=== PATIENT | male | born 1945 | race Caucasian/White ===

== ENCOUNTER → 2017-04-19 | Outpatient (CLI) | payer MEDICARE ==
--- NOTE | 2017-04-20 09:19 | CONS ---
CONSULTATION Date of Consultation: DATE OF CONSULTATION: 04/01/17 72-year-old gentleman has been evaluated in [facility] for obstructive sleep apnea. HISTORY OF PRESENT ILLNESS: I diagnosed patient with obstructive sleep apnea in 2007 and at that time, she was started on treatment with CPAP at a pressure 8 cm of water. The patient continued to use his CPAP equipment until present time and he sleeps better with CPAP then without CPAP before but he increase his weight on around 30 pounds since his previous titration and recently again developed snoring, episodes of stopped breathing during his sleep and awakening with choking, gasping for air, and grinding teeth. SLEEP SCHEDULE: Normal sleep schedule: 8:30 p.m. until 6:00 a.m., basically 7 days a week. FALLING ASLEEP: No problems with falling asleep. He has TV set in bedroom. DURING SLEEP: He may wake up from sleep several times with one episode of nocturia. Sometimes he has some pain in his right knee, which may be also the factor for his awakening from sleep. DURING THE DAY/WAKE STATE: He wakes up tired recently. [place] sleepiness scale increased to 13. PAST MEDICAL HISTORY: Positive for hypertension, hyperlipidemia. PAST SURGICAL HISTORY: Two surgery for nasal septum deviation and surgery for sinusitis. CURRENT MEDICATIONS: 1. Baby aspirin. 2. Losartan. 3. Microzide. 4. Denise. 5. Pravastatin. 6. Minocycline. 7. Ibuprofen. 8. Fluticasone nasal spray. SOCIAL HISTORY: Positive for smoking in the past. Quit in 2006. Alcohol consumption none. FAMILY HISTORY: Hypertension, heart problems, hyperlipidemia, stroke, arthritis, and cancer. PHYSICAL EXAM: 72-year-old, gentleman in no distress. BP 169/81. HR 80 and RR 16 and height 5 feet 9.5 Inches, weight 255, BMI 37.1, temperature 97.8. Oxygen saturation on room air 95%. Oropharynx extremely low position of soft palate. Nose: Patient able to breath through both sides of the nose. NECK: Supple. No JVD. Thyroid is not palpable. LUNGS: Clear to auscultation and percussion. Good air exchange. No wheezing or rhonchi. HEART: S1, S2 regular. No murmurs, gallops or rubs. ABDOMEN: Obese. Soft, nontender. Bowel sounds are preset. No organomegaly appreciated. EXTREMITIES: Extremities 1+ bilateral ankle edema. SOCIAL MEDIA MANAGER: Awake, alert and oriented times three. Cranial nerves 2 to 7 intact. There is no fasciculation or atrophy noted. No focal deficits observed. IMPRESSION: 1. Obstructive sleep apnea-hypopnea syndrome diagnosed in 2007. Patient continue to use his CPAP equipment every night but recently again developed snoring, sleepiness, and awakenings from sleep. 2. Obesity, patient increased weight of 30 pounds since previous titration 9 years ago. 3. Hypertension. 4. Hyperlipidemia. 5. Status post surgery for nasal septal deviation. 6. Status post surgical treatment of sinusitis. 7. Allergy. 8. Hyperlipidemia. 9. Swelling of the legs. 10.Status post rotator cuff surgery. 11.Status post surgical treatment of plantar fasciitis. PLAN: 1. CPAP titration for evaluation of effective CPAP pressure at the present time. 2. Losing weight. 3. Sleep hygiene with regular time in bed for at least 8 hours. 4. No driving if feels any sleepiness. 5. Prescription for all necessary CPAP supplies. Thank you for referring this patient for consultation. Sincerely, Mando Carrillo MD, PhD, FAASM Diplomat of [place] [employer]. Sleep Medicine Board by [employer] Quality Assurance Supervisor of [facility] [place] MMODL / IJN: [id number] /
== END | disposition home or self-care (01) ==
LOC: SLEEP 14:04
PROVIDERS: ATTEND Internal Medicine
DX: G47.33 Obstructive sleep apnea (adult) (pediatric) (principal); E66.9 Obesity, unspecified; I10 Essential (primary) hypertension; E78.5 Hyperlipidemia, unspecified; T78.40XA Allergy, unspecified, initial encounter; M79.89 Other specified soft tissue disorders; Z79.82 Long term (current) use of aspirin; Z79.899 Other long term (current) drug therapy; Z98.890 Other specified postprocedural states
CPT/HCPCS: 99211

== ENCOUNTER → 2017-06-21 | Outpatient (CLI) | payer MEDICARE ==
--- NOTE | 2017-06-21 12:47 | PN ---
PROGRESS NOTE DATE OF SERVICE: 06/21/2017. 72-year-old gentleman who has been followed in [facility] for treatment of obstructive sleep apnea-hypopnea syndrome. Patient continued to use his CPAP equipment every night for the whole night, but still has some episodes of sleepiness during the day. He had recent titration in April of 2017, and his machine actually was not changed after titration. I explain the patient results of titration. Titration showed that effective CPAP pressure was 13 cm of water. With a lower pressure, the patient continued to have some abnormalities of respirations. I checked his CPAP unit. Usage is 28/30 nights for more than 4 hours, average 6.6 hours. Pretty high leak 59 L/minute. Apnea-hypopnea index reading only 1.6. [place] Sleepiness Scale today is 12. MEDICATIONS: Aspirin, losartan, Microzide, Denise, pravastatin, minocycline, ibuprofen, fluticasone nasal spray. PHYSICAL EXAM: GENERAL: A 72-year-old gentleman without distress. VITAL SIGNS: BP 132/69, HR 58, RR 16, weight 262, temp 96.9, oxygen saturation at room air 95%. HEENT: PERRLA, EOMI, evaluation of oropharynx showed extremely low position of soft palate. NECK : Supple, no JVD. Thyroid is not palpable. HEART: S1, S2 regular with some extrasystoles. LUNGS: Clear to percussion and to auscultation. Good air exchange. No wheezing or rhonchi. ABDOMEN: Obese. Soft and nontender. Bowel sounds are present. No organomegaly appreciated. EXTREMITIES : No clubbing or cyanosis. REGULATORY AUDITOR: Awake, alert, and oriented X3. Cranial nerves 2 to 7 intact. There is no fasciculation or atrophy. noted. No focal deficits observed. IMPRESSION: 1. Obstructive sleep apnea-hypopnea syndrome. The patient continued to use his CPAP equipment every night without significant problems benefitting from treatment. 2. CPAP pressure in the machine 10. Results of sleep study indicated that 13 is the best pressure. 3. Obesity. 4. Hypertension. 5. Hyperlipidemia. 6. Status post surgery for nasal septum deviation. 7. Status post surgical treatment of sinusitis. 8. Allergy. 9. Status post rotator cuff surgery. 10.Status post surgical treatment of plantar fasciitis. PLAN: 1. I adjusted the CPAP pressure in the machine up to 13 cm of water. 2. I changed ramp, increased it to 20 minutes and starting pressure increased to 6 cm of water. 3. Continue to use CPAP equipment every night for losing weight. 4. Losing weight. 5. Sleep hygiene with regular time in bed for at least 8 hours. 6. Prescription for all necessary CPAP supplies. 7. Followup visit on in 1 year or earlier if patient has any problems. Thank you very much for allowing me to participate in management of your patient. Sincerely, Mando Carrillo MD, PhD, FAASM Diplomat of [employer] [employer] [place] [employer] Friction Welding Machine Operator of [facility] [employer] MMODL / IJN: [id number] /
== END | disposition home or self-care (01) ==
LOC: SLEEP 11:34
PROVIDERS: ATTEND Internal Medicine
DX: G47.33 Obstructive sleep apnea (adult) (pediatric) (principal); E66.9 Obesity, unspecified; I10 Essential (primary) hypertension; E78.5 Hyperlipidemia, unspecified; T78.40XA Allergy, unspecified, initial encounter; Z79.82 Long term (current) use of aspirin; Z79.1 Long term (current) use of non-steroidal anti-inflammatories (NSAID); Z79.51 Long term (current) use of inhaled steroids; Z79.899 Other long term (current) drug therapy; Z98.890 Other specified postprocedural states

== ENCOUNTER → 2017-10-23 | Outpatient (CLI) | payer MEDICARE ==
[2017-10-23 13:25] LABS: Blood Urea Nitrogen 20 mg/dL (9-20)
--- NOTE | 2017-10-23 14:50 | CT ---
CT orbits with and without contrast HISTORY: I 77.0 Helical acquisition through the orbits pre- and postadministration of 80 cc Visipaque 320 IV, coronal reconstructions performed. No comparisons Lobular soft tissue intraorbital densities are present which are relatively symmetric within the bila teral orbits in the superior aspect, upper outer aspect causing some minimal mass effect on local mus culature, possibly on the optic nerves. There is some minimal posterior enhancement following contras t administration bilaterally. Lesions measure approximately 13 x 23 x 14 mm on the left and slightly smaller on the right. Inflammatory changes are present within the left greater than right maxillary sinus, ethmoid air cell s and frontal sinus. 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 Sinus disease.
== END | disposition home or self-care (01) ==
LOC: RADCTMAIN 12:43
PROVIDERS: ATTEND Ophthalmology
DX: I77.0 Arteriovenous fistula, acquired (principal)
CPT/HCPCS: 82565; 84520; 70482; 36415; Q9967

== ENCOUNTER → 2019-06-19 | Outpatient (CLI) | payer MEDICARE | END | disposition home or self-care (01) | LOC: LABPAT 14:27 | PROVIDERS: ATTEND Orthopaedic Surgery | DX: Z01.812 Encounter for preprocedural laboratory examination (principal) | CPT/HCPCS: 87070 ==

== ENCOUNTER → 2020-11-09 | Outpatient (CLI) | payer MEDICARE ==
--- NOTE | 2020-11-09 16:15 | US ---
EXAMINATION TYPE: US venous doppler duplex LE RT DATE OF EXAM: 11/09/2020 3:58 PM COMPARISON: NONE CLINICAL HISTORY: M25.562 Pain in right knee, I80.9 Phlebitis and thr. Swelling right knee [address] knee replacement SIDE PERFORMED: Right TECHNIQUE: The lower extremity deep venous system of the right lower extremity is examined utilizing real time linear array sonography with graded compression, doppler sonography and color-flow sonogra phy. VESSELS IMAGED: Common Femoral Vein Deep Femoral Vein Greater Saphenous Vein * Femoral Vein Popliteal Vein Small Saphenous Vein * Proximal Calf Veins (* superficial vessels) There is normal flow, compressibility, vascular waveforms. Right Leg: Negative for DVT. Anterior right knee complex fluid seen from above knee to just inferior to right knee = 12.8 x 6.1 x 1.3cm. IMPRESSION: No evident deep venous thrombosis at or above the right knee. Possible joint effusion, in determinate fluid collection. Note the history states left knee in the PACS
== END | disposition home or self-care (01) ==
LOC: RADUSWWP 15:18
PROVIDERS: ATTEND Orthopaedic Surgery
DX: M79.89 Other specified soft tissue disorders (principal); M25.561 Pain in right knee

== ENCOUNTER → 2020-11-22 | Outpatient (CLI) | payer MEDICARE ==
[2020-11-22 16:36] LABS: Appearance,BF Bloody; Color,BF Red
[2020-11-22 16:37] LABS: Nucleated Cells, Body Fluid 1100 /uL; RBC, Body Fluid 110500 /uL
[2020-11-22 17:00] LABS: Mononuclear WBC,Body Fluid 3 %; Polynuclear WBC,Body Fluid 97 %; Total Cells Counted,Body Fluid 100
[2020-11-22 19:55] LABS: HCT 46.6 % (39.6-50.0); HGB 14.8 g/dL (13.0-17.0); MCH 28.7 pg (27.0-32.0); MCHC 31.8 g/dL (32.0-37.0); MCV 90.3 fL (80.0-97.0); Mean Platelet Volume 10.9 fL (9.5-12.2); Platelet Count 306 X 10*3/uL (140-440); RBC 5.16 X 10*6/uL (4.40-5.60); RDW 14.9 % (11.5-14.5); WBC 7.47 X 10*3/uL (4.50-10.00)
[2020-11-22 21:50] LABS: Erythrocyte Sedimentation Rate 14 mm/Hr (0-20)
== END | disposition home or self-care (01) ==
LOC: LABWHC1 10:22
PROVIDERS: ATTEND Orthopaedic Surgery
DX: Z47.1 Aftercare following joint replacement surgery (principal); M17.12 Unilateral primary osteoarthritis, left knee; M25.561 Pain in right knee
CPT/HCPCS: 36415; 83520; 85027; 85652; 86140; 87070; 87075; 87205; 89050

== ENCOUNTER 2021-08-17 06:43 | Day surgery (SDC) | payer MEDICARE ==
[2021-08-10 14:10] VITALS: BMI 36.6
[~2021-08-17 06:43] MED LIST: ALPRAZolam 0.25 MG TAB PO PRN; ALPRAZolam 0.5 MG TAB PO PRN; ASPIRIN 325 MG TAB PO STA; HEPARIN SODIUM,PORCINE 10,000 UNIT in SODIUM CHLORIDE 0.9% 1,000 ML IRRIGATION PRN; HEPARIN SODIUM,PORCINE 2,500 UNIT in SODIUM CHLORIDE 0.9% 250 ML IRRIGATION PRN; NITROGLYCERIN SL TABS 0.4 MG TAB SUBLINGUAL PRN; SODIUM CHLORIDE 0.9% 1,000 ML in EMPTY BAG 1 BAG IV SCH
[2021-08-17 07:10] LABS: Glucose,Whole Blood 125 mg/dL (75-99)
[2021-08-17 07:23] LABS: Basophils % (A) 1 %; Eosinophils # (A) 0.2 k/uL (0-0.7); Eosinophils % (A) 3 %; HCT 45.3 % (39.0-53.0); Hypochromasia Marked; Lymphocytes # (A) 1.2 k/uL (1.0-4.8); Lymphocytes % (A) 18 %; MCH 27.1 pg (25.0-35.0); MCHC 30.8 g/dL (31.0-37.0); Mean Platelet Volume 8.2; Monocytes # (A) 0.6 k/uL (0-1.0); Monocytes % (A) 9 %; Neutrophils # (A) 4.6 k/uL (1.3-7.7); Neutrophils % (A) 68 %; Platelet Count 249 k/uL (150-450); RBC 5.15 m/uL (4.30-5.90); RDW 15.6 % (11.5-15.5); WBC 6.7 k/uL (3.8-10.6)
[2021-08-17 07:25] VITALS: RESP 16; TEMP 98
[2021-08-17 07:33] LABS: Calcium 9.3 mg/dL (8.4-10.2)
[2021-08-17] MEDS ORDERED: LIDOCAINE 1% INJ 10MG/ML (20 ML MDV) ONE (07:35)
[2021-08-17] MEDS ORDERED: VERAPAMIL 2.5 MG/ML 2 ML AMP ONE (07:35)
[2021-08-17] MEDS ORDERED: fentaNYL (PF) 50 MCG/ML 2 ML AMP ONE (07:36)
[2021-08-17 07:37] LABS: Potassium 4.6 mmol/L (3.5-5.1)
[2021-08-17] MEDS: MIDAZOLAM 2 MG/2 ML VIAL IVP ONE ×2 (07:47→08:19)
[2021-08-17] MEDS ORDERED: fentaNYL (PF) 50 MCG/ML 2 ML AMP IVP ONE (07:47)
[2021-08-17] MEDS ORDERED: LIDOCAINE 1% INJ 10MG/ML (20 ML MDV) SQ ONE (07:49)
[2021-08-17] MEDS ORDERED: HEPARIN SODIUM 1,000 UN/ML (10ML VL) ONE (08:02)
[2021-08-17] MEDS ORDERED: HEPARIN SODIUM 1,000 UN/ML (10ML VL) IVP ONE (08:03)
[2021-08-17] MEDS ORDERED: IOPAMIDOL-370 125ML BTL INJ ONE (08:35)
[2021-08-17] MEDS ORDERED: SODIUM CHLORIDE 0.9% 1,000 ML IV SCH (08:45)
[2021-08-17] MEDS ORDERED: RX INFO: IV CONTRAST WAS GIVEN 1 EACH MISC MISCELLANE PRN (08:45)
[2021-08-17 10:34] VITALS: BP 146/87; PULSE 84
--- NOTE | 2021-08-17 11:25 | CC ---
CARDIAC CATHETERIZATION REPORT INDICATION: Exertional shortness of breath with cardiomyopathy and mild nonobstructive disease on cardiac catheterization in the past. PROCEDURE NOTE: After obtaining informed consent, left heart catheterization and coronary angiogram are performed via the right radial artery using standard Natalie catheters. The left and right coronaries were engaged using size 4 Natalie catheters and the left ventricular pressures were obtained with the right Natalie. The right radial artery access was obtained using modified Seldinger technique and 5 mg of verapamil was given and units of IV heparin as per protocol. We had difficulty in passing catheters into the ascending aorta, used a long Glidewire, and the on-call erosion control coordinator helped complete the procedure. Total sedation time was minutes. Patient did not have any complications. A TR band was used for hemostasis. Pulse ox was 94%. FINDINGS: Right coronary artery is a large dominant vessel and is free of significant disease. Left main coronary artery is a long vessel and is free of disease; it shows mild nonobstructive disease involving proximal circumflex coronary and proximal LAD. CONCLUSIONS: 1. Mild nonobstructive coronary artery disease. 2. Patient's cardiomyopathy and symptoms of heart failure may be related to the underlying atrial fibrillation. He will be anticoagulated and will undergo RANULFO cardioversion 3 [address] MMODL / IJN: [id number] /
== END 2021-08-17 13:06 | disposition home or self-care (01) ==
LOC: CATHCVL 06:43
PROVIDERS: ATTEND Internal Medicine Cardiovascular Disease
DX: I25.10 Atherosclerotic heart disease of native coronary artery without angina pectoris (principal); I11.0 Hypertensive heart disease with heart failure; I50.9 Heart failure, unspecified; I42.0 Dilated cardiomyopathy; I48.19 Other persistent atrial fibrillation; Z20.822 Contact with and (suspected) exposure to COVID-19; E78.5 Hyperlipidemia, unspecified; Z72.0 Tobacco use; Z79.01 Long term (current) use of anticoagulants; Z79.84 Long term (current) use of oral hypoglycemic drugs; Z79.1 Long term (current) use of non-steroidal anti-inflammatories (NSAID); Z79.82 Long term (current) use of aspirin; Z79.899 Other long term (current) drug therapy
CPT/HCPCS: 93454; 80048; 85025; 87635; C1894; C1769 ×2; J2250; J2001; J3010; J1644; Q9967

== ENCOUNTER 2021-09-08 08:13 | Day surgery (SDC) | payer MEDICARE ==
[2021-09-02 12:24] VITALS: BMI 36.1
[~2021-09-08 08:13] MED LIST changes: -ALPRAZolam 0.25 MG TAB PO PRN; -ALPRAZolam 0.5 MG TAB PO PRN; -ASPIRIN 325 MG TAB PO STA; -HEPARIN SODIUM,PORCINE 10,000 UNIT in SODIUM CHLORIDE 0.9% 1,000 ML IRRIGATION PRN; -HEPARIN SODIUM,PORCINE 2,500 UNIT in SODIUM CHLORIDE 0.9% 250 ML IRRIGATION PRN; +LACTATED RINGERS 1,000 ML IV SCH; +LIDOCAINE 1% (10MG/ML) FOR IV START INTRADERMA PRN; -NITROGLYCERIN SL TABS 0.4 MG TAB SUBLINGUAL PRN; +SODIUM CHLORIDE 0.9% 1,000 ML IV SCH; -SODIUM CHLORIDE 0.9% 1,000 ML in EMPTY BAG 1 BAG IV SCH
[2021-09-08 08:41] VITALS: TEMP 97.7
[2021-09-08] MEDS ORDERED: PROPOFOL 10 MG/ML 20 ML VIAL IV ONE (09:14)
[2021-09-08] MEDS ORDERED: LIDOCAINE 1% INJ 10MG/ML (20 ML MDV) ONE (09:14)
[2021-09-08] MEDS: BENZOCAINE SPRAY 1 CAN MUCOUS MEM ONE ×2 (09:16→09:21)
[2021-09-08 09:23] VITALS: RESP 16
[2021-09-08 10:06] LABS: Glucose,Whole Blood 111 mg/dL (75-99)
[2021-09-08 11:11] VITALS: BP 138/79; PULSE 79
--- NOTE | 2021-09-08 12:41 | ECHOT ---
TRANSESOPHAGEAL ECHOCARDIOGRAM TRANSESOPHAGEAL ECHOCARDIOGRAM AND CARDIOVERSION PROCEDURE: INDICATION: Persistent atrial fibrillation. The first procedure is a transesophageal echo and the second is cardioversion. PROCEDURE NOTE: After obtaining informed consent, transesophageal echocardiogram was performed in left lateral position using an Omniplane probe. Local and IV sedation were obtained by the half backer. Patient tolerated the procedure well without any obvious immediate complications. Two-D, color, M-mode and Doppler evaluations were performed. FINDINGS: 1. There is no intracardiac thrombus within the left atrial appendage, left atrium, right atrium, right ventricle or left ventricle. 2. Mitral valve shows mild to moderate central mitral regurgitation. Left atrium appears enlarged. Right atrium and right ventricle appear mildly enlarged. Left ventricle appears dilated with diffuse global hypokinesis with moderate to severe LV dysfunction with an ejection fraction of %. There is moderate tricuspid regurgitation noted. There is no evidence of [id number] shunt by color-flow Doppler or [id number]-[id number] shunt by agitated saline contrast study. 3. Aortic valve is a 3-leaflet valve. There is no evidence of aortic stenosis or regurgitation. 4. Aortic root measures normally. CONCLUSIONS: 1. No intracardiac thrombus. 2. Moderate tricuspid regurgitation. 3. Mild to moderate mitral regurgitation. 4. Left ventricle appears enlarged. 5. Cardiomyopathy with moderate to severe LV dysfunction. PLAN: Patient will undergo cardioversion. CARDIOVERSION NOTE: INDICATION: Persistent atrial fibrillation. DESCRIPTION: After obtaining informed consent and making sure that the patient is adequately anticoagulated with Eliquis 5 b.i.d. and ruling out intracardiac thrombus with a transesophageal echo, patient underwent electrical cardioversion using synchronized DC current. He had 3 shocks at 120, 150 and 200 joules but did not convert to sinus rhythm. Plan at this stage is continue his current medications. He will follow up with me in the office and I will consider starting him on amiodarone and make another attempted cardioversion. MMODL / IJN: [id number] /
== END 2021-09-08 11:30 | disposition home or self-care (01) ==
LOC: CATHCVL 08:13
PROVIDERS: ATTEND Internal Medicine Cardiovascular Disease
DX: I48.19 Other persistent atrial fibrillation (principal); I08.1 Rheumatic disorders of both mitral and tricuspid valves; I42.0 Dilated cardiomyopathy; E78.5 Hyperlipidemia, unspecified; I10 Essential (primary) hypertension; Z20.822 Contact with and (suspected) exposure to COVID-19; Z72.0 Tobacco use; I50.22 Chronic systolic (congestive) heart failure; Z79.84 Long term (current) use of oral hypoglycemic drugs; Z79.1 Long term (current) use of non-steroidal anti-inflammatories (NSAID); Z79.82 Long term (current) use of aspirin; Z79.899 Other long term (current) drug therapy
CPT/HCPCS: 93312; 93320; 93325; 92960; 87635; J2001; J2704

== ENCOUNTER → 2021-09-16 | Outpatient (CLI) | payer MEDICARE ==
--- NOTE | 2021-09-20 14:19 | MR ---
EXAMINATION TYPE: MR kidney wo/w con DATE OF EXAM: 09/16/2021 COMPARISON: Outside ultrasound abdomen limited February 08, 2022. Outside CT same date HISTORY: RT side pain,Abnormal radiologic findings on diagnostic CONTRAST: Standard multiplanar, multisequence MRI departmental protocol images were obtained without contrast a nd with 12 mL intravenous Gadavist gadolinium contrast. FINDINGS: Kidneys: Some cortical thinning is present bilaterally. There is occasional subcentimeter benign-appe aring thin-walled cysts scattered throughout the periphery of the left kidney. No left-sided hydronep hrosis. Right kidney shows more numerous tiny thin-walled cysts, there are 2 adjacent exophytic thin-walled c ysts anteriorly from the mid pole level right kidney coronal image 15. Largest measures 2.7 cm long a xis coronal image 16. Nonsimple cyst noted posteriorly partially exophytic from the mid to lower pole right kidney as there is lesion isointense to renal cortex on T2-weighted images that is slightly hy perintense on T1-weighted images, this lesion shows no postcontrast enhancement versus the adjacent k idney consistent with a benign hemorrhagic or proteinaceous cyst. No suspicious enhancing masses with washout identified. No right-sided hydronephrosis. 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 Gallbladder appears within normal limits. No e xtrahepatic biliary dilatation is seen. Tiny nodular thickening to the posterior limb left adrenal gl and shows signal dropout consistent with benign lipid rich adenoma. No suspicious small or large alba l dilatation. No intra-abdominal ascites. Borderline AAA near 3.0 cm AP diameter infrarenal abdominal aorta axial image 180 at the level of the TRUPTI origin is redemonstrated. Marked disc space narrowing with heterogeneous endplate changes L1-L2 level are noted. 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
== END | disposition home or self-care (01) ==
LOC: RADMRIMAIN 05:55
PROVIDERS: ATTEND Internal Medicine
DX: N28.89 Other specified disorders of kidney and ureter (principal)
CPT/HCPCS: 74183; A9585

== ENCOUNTER 2021-10-17 10:21 | Day surgery (SDC) | payer MEDICARE ==
[2021-10-13 15:01] VITALS: BMI 35.6
[~2021-10-17 10:21] MED LIST changes: -LACTATED RINGERS 1,000 ML IV SCH; -LIDOCAINE 1% (10MG/ML) FOR IV START INTRADERMA PRN
[2021-10-17 11:09] LABS: Potassium 4.3 mmol/L (3.5-5.1)
[2021-10-17] MEDS ORDERED: LIDOCAINE 1% INJ 10MG/ML (20 ML MDV) ONE (11:25)
[2021-10-17] MEDS ORDERED: PROPOFOL 10 MG/ML 20 ML VIAL IV ONE (11:25)
[2021-10-17 11:26] VITALS: RESP 16; TEMP 98
[2021-10-17 13:31] VITALS: BP 146/75; PULSE 72
--- NOTE | 2021-10-24 13:11 | ECHOT ---
TRANSESOPHAGEAL ECHOCARDIOGRAM PROCEDURE: Transesophageal echocardiogram. DATE OF PROCEDURE: 10/17/2021. INDICATION: Persistent atrial fibrillation to rule out intracardiac thrombus. PROCEDURE NOTE: After obtaining informed consent, transesophageal echocardiogram was performed in left lateral position using an Omniplane probe. Local and IV sedation were obtained by the sports umpire and patient tolerated the procedure well without any obvious immediate complications. The patient had 2D, color Doppler and spectral analysis. FINDINGS: 1. There is no intracardiac thrombus within the left atrial appendage, left atrium, right atrium or right ventricle. 2. Left atrium appears moderately enlarged. 3. Right atrium and right ventricle appear mildly enlarged. 4. Left ventricle appears dilated with diffuse global hypokinesis with moderate LV dysfunction with an ejection fraction of 35% to 40%. 5. Aortic valve is a 3-leaflet valve. There is no evidence of aortic stenosis or regurgitation. Aortic root measures within normal limits. 6. Mitral valve is anatomically normal. There is mild to moderate central mitral regurgitation noted. 7. There is moderate tricuspid regurgitation noted. CONCLUSIONS: 1. Cardiomyopathy with moderate LV dysfunction. 2. Mild to moderate mitral regurgitation. 3. No evidence of intracardiac thrombus. PLAN: Patient will undergo cardioversion. MMODL / IJN: [id number] /
--- NOTE | 2021-10-26 08:21 | PCN ---
PROCEDURE NOTE CARDIOVERSION NOTE: After obtaining informed consent, patient underwent electrical cardioversion following two shocks at 150 and 200 joules. He received synchronized DC current and converted to sinus rhythm after the second shock. Patient is adequately anticoagulated with Eliquis and does not have an intracardiac thrombus. Patient is on amiodarone to help facilitate the cardioversion and hopefully he will stay in sinus rhythm. MMDAVIS / ANKURN: [id number] /
== END 2021-10-17 13:35 | disposition home or self-care (01) ==
LOC: CATHCVL 10:21
PROVIDERS: ATTEND Internal Medicine Cardiovascular Disease
DX: I48.19 Other persistent atrial fibrillation (principal); I11.0 Hypertensive heart disease with heart failure; I50.22 Chronic systolic (congestive) heart failure; E78.5 Hyperlipidemia, unspecified; Z87.891 Personal history of nicotine dependence; K21.9 Gastro-esophageal reflux disease without esophagitis; Z96.659 Presence of unspecified artificial knee joint; Z98.890 Other specified postprocedural states; Z79.01 Long term (current) use of anticoagulants; Z79.1 Long term (current) use of non-steroidal anti-inflammatories (NSAID); Z79.899 Other long term (current) drug therapy; Z79.84 Long term (current) use of oral hypoglycemic drugs; Z79.82 Long term (current) use of aspirin; Z79.51 Long term (current) use of inhaled steroids
CPT/HCPCS: 93312; 93320; 93325; 92960; 80048; J2001; J2704